=== PATIENT | female | born 1965 | race Caucasian/White ===

== ENCOUNTER 2024-02-20 08:26 | Outpatient (CLI) | payer BC ==
[2024-02-20 11:18] LABS: #Basophils 0.06 10x3/uL (0.0-0.2); #Eosinphils 0.22 10x3/uL (0.0-0.5); #Monocytes 0.38 10x3/uL (0.0-1.1); #Neutrophils 2.47 10x3/uL (1.5-8.4); %Basophils 1.1 % (0.0-2.0); %Eosinophils 4.2 % (0.0-6.0); %Lymphocytes 40.2 % (18.0-47.0); %Monocytes 7.2 % (0.0-10.0); %Neutrophils 47.1 % (40.0-75.0); Hematocrit 43.6 % (34.9-44.5); Hemoglobin 14.5 g/dL (12.0-15.5); Mean Corpuscular HGB CONC 33.3 g/dL (32.0-36.0); Mean Corpuscular Hemoglobin 32.1 pg (27.0-33.0); Mean Corpuscular Volume 96.5 fL (81.6-98.3); Mean Platelet Volume 9.3 fL (7.4-10.4); Platelet Count 299 10x3/uL (150-450); Red Blood Cell (RBC) Count 4.52 10x6/uL (3.90-5.03); White Blood Cell (WBC) Count 5.3 10x3/uL (3.5-10.5)
[2024-02-20 12:25] LABS: Anion Gap 15 mmol/L (10-20); BUN (Urea Nitrogen) 12 mg/dL (9.8-20.1); Calc. Creatinine Clearance 0 mL/min (70-130); Calcium 9.3 mg/dL (7.8-10.44); Carbon Dioxide 26 mmol/L (22-29); Chloride 104 mmol/L (98-107); Estimated GFR 87; Glucose 81 mg/dL (70-105); Potassium 4.5 mmol/L (3.5-5.1); Sodium 140 mmol/L (136-145)
== END 2024-02-20 08:27 | disposition home or self-care (01) ==
LOC: CSHLAB 08:26
PROVIDERS: ATTEND Surgery
DX: Z01.818 Encounter for other preprocedural examination (principal); K40.20 Bilateral inguinal hernia, without obstruction or gangrene, not specified as recurrent
CPT/HCPCS: 80048; 85025

== ENCOUNTER 2024-02-29 09:05 | Day surgery (SDC) | payer BC ==
[2024-02-20 08:45] VITALS: BMI 26.3
[2024-02-29] MEDS ORDERED: PROPOFOL 20 ML ONE (10:05)
[2024-02-29] MEDS ORDERED: Rocuronium Bromide 10 MG/ML (10ML VIAL) ONE (10:06)
[2024-02-29] MEDS ORDERED: Lidocaine 1% PF 5 ML VIAL ONE (10:06)
[2024-02-29] MEDS ORDERED: fentaNYL 50 mcg/mL 1 mL Vial ONE ×2 (10:15→11:33)
[2024-02-29] MEDS ORDERED: EPINEPHrine 1 MG/ML VIAL ONE (10:57)
[2024-02-29] MEDS ORDERED: Bupivacaine 0.25% HCL 30 ML VIAL ONE (10:58)
[2024-02-29] MEDS ORDERED: CEFAZOLIN 2 GM VIAL ONE (11:04)
[2024-02-29] MEDS ORDERED: Ondansetron PF 4 MG/2 ML Vial ONE (11:49)
[2024-02-29] MEDS ORDERED: Ketorolac Tromethamine 30 MG (1 mL) VIAL ONE (11:49)
[2024-02-29] MEDS ORDERED: HYDROcodone/Acetaminophen 5/325 mg Tablet ONE (13:10)
== END 2024-02-29 14:00 | disposition home or self-care (01) ==
LOC: CSHSDC 09:05
PROVIDERS: ATTEND Surgery
PROC: 0YUA4JZ Supplement Bilateral Inguinal Region with Synthetic Substitute, Percutaneous Endoscopic Approach (ICD-10-PCS; principal; 2024-02-29)
DX: K40.20 Bilateral inguinal hernia, without obstruction or gangrene, not specified as recurrent (principal); K40.21 Bilateral inguinal hernia, without obstruction or gangrene, recurrent
CPT/HCPCS: C1781; J0171; J0665; J1885; J2405; J2704; J3010